=== PATIENT | female | born 1995 | race Caucasian/White ===

== ENCOUNTER 2025-05-15 11:38 | Emergency (ER) | payer BC ==
[2025-05-15 11:57] VITALS: BP 114/83; PULSE 78; RESP 18; TEMP 98.6; BMI 19.8
[2025-05-15] MEDS ORDERED: LIDOCAINE HCL 2% (20ML MULTI-DOSE VIAL) ONE (12:03)
[2025-05-15] MEDS: DIPHTH,PERTUSS(ACELL),TET 0.5 ML DISP.SYRIN IM ONE (12:10)
== END 2025-05-15 12:46 | disposition home or self-care (01) ==
LOC: FER 11:38
DX: S61.315A Laceration without foreign body of left ring finger with damage to nail, initial encounter (principal); W26.0XXA Contact with knife, initial encounter; Y92.009 Unspecified place in unspecified non-institutional (private) residence as the place of occurrence of the external cause; Y93.G1 Activity, food preparation and clean up
CPT/HCPCS: 99283-25